=== PATIENT | female | born 1980 | race African-American/Black ===

== ENCOUNTER 2019-07-04 19:10 | Emergency (ER) | payer OTHER ==
--- NOTE | 2019-07-04 19:33 | NUR ---
CALLED PT IN WAITING ROOM, NO RESPONSE.
--- NOTE | 2019-07-04 20:13 | NUR ---
CALLED PT IN WAITING ROOM, NO RESPONSE.
--- NOTE | 2019-07-04 20:43 | NUR ---
CALLED PT IN WAITING ROOM, NO RESPONSE.
== END 2019-07-04 20:44 | disposition left against medical advice (07) ==
LOC: ER 19:18
DX: Z53.21 Procedure and treatment not carried out due to patient leaving prior to being seen by health care provider (principal)